=== PATIENT | female | born 1985 | race African-American/Black ===

== ENCOUNTER 2021-07-30 01:59 | Inpatient (IN) | payer MEDICAID, OTHER ==
[~2021-07-30] VITALS: Ht 165.1 cm; Wt 112.5 kg
[2021-07-30] MEDS ORDERED: CARBOPROST TROMETHAMINE 250 MCG/ML AMPUL IM PRN (04:30)
[2021-07-30] MEDS ORDERED: LIDOCAINE HCL 1% 20ML VIAL (Pyxis) INJ INFIL SCH (04:30)
[2021-07-30] MEDS ORDERED: METHYLERGONOVINE MALEATE 0.2 MG/ML IM PRN (04:30)
[2021-07-30] MEDS ORDERED: NALOXONE HCL 0.4 MG/ML 1ML VIAL IM PRN (04:30)
[2021-07-30] MEDS ORDERED: DEXT 5%/LR + PITOCIN 20UNITS/L 1,000 ML IV SCH (04:30)
[2021-07-30] MEDS ORDERED: PENICILLIN G POTASSIUM 5 MMU in DEXT 5% WATER 100 ML IV SCH (05:00)
[2021-07-30] MEDS: LACTATED RINGERS 1,000 ML IV SCH ×3 (06:42→18:22)
[2021-07-30] MEDS ORDERED: FERR236T3 MT (06:54)
[2021-07-30] MEDS ORDERED: PNV1TABL76 MT (06:54)
[2021-07-30] MEDS ORDERED: MISOPROSTOL 100MCG TABLET VG SCH (08:00)
[2021-07-30] MEDS ORDERED: PENICILLIN G POTASSIUM 2.5 MMU in DEXTROSE 5% WATER 50 ML IV SCH (09:00)
[2021-07-30 09:10] LABS: BASOPHILS % 0.6 % (0.0-2.0); EOSINOPHILS % 0.5 % (0.0-5.0); HEMATOCRIT. 31.7 % (36.0-48.0); HEMOGLOBIN. 10.5 g/dL (12.0-16.0); LYMPHOCYTES % 18.1 % (20.0-50.0); MEAN CORPUSCULAR HEMOGLOBIN 31.2 pg (28.0-32.0); MEAN CORPUSCULAR VOLUME 94.3 fL (81.0-99.0); MEAN PLATELET VOLUME 9.2 fl (7.4-10.4); MONOCYTES % 9.9 % (2.0-8.0); NEUTROPHILS % 70.9 % (40.0-76.0); PLATELET 202 x1000/uL (130-400); RED BLOOD CELL COUNT 3.36 mill/uL (4.2-5.4); RED CELL DISTRIBUTION WIDTH 14.5 % (11.6-14.6)
[2021-07-30 09:18] LABS: PARTIAL THROMBOPLASTIN TIME 28.1 sec (23.4-31.0); PROTHROMBIN TIME 10.8 sec (9.6-11.0)
[2021-07-30 09:40] LABS: CLARITY URINE CLOUDY (CLEAR); COLOR URINE YELLOW (YELLOW); KETONES URINE NEGATIVE (NEGATIVE); LEUKOCYTE ESTERASE URINE TRACE (NEGATIVE); NITRITE URINE NEGATIVE (NEGATIVE); OCCULT BLOOD URINE NEGATIVE (NEGATIVE); PROTEIN URINE NEGATIVE (NEGATIVE); UROBILINOGEN URINE 0.2 E.U./dL (0.2-1.0)
[2021-07-30 09:54] LABS: *AMPHETAMINES SCREEN URINE NEGATIVE (NEGATIVE)
[2021-07-30 09:55] LABS: *BENZODIAZEPINES SCREEN URINE NEGATIVE (NEGATIVE); *COCAINE SCREEN URINE NEGATIVE (NEGATIVE); METHADONE URINE SCREEN NEGATIVE (NEGATIVE); OPIATES URINE SCREEN NEGATIVE (NEGATIVE)
[2021-07-30 09:56] LABS: PHENCYCLIDINE URINE SCREEN NEGATIVE (NEGATIVE)
[2021-07-30 09:57] LABS: *BARBITURATES SCREEN URINE NEGATIVE (NEGATIVE)
[2021-07-30 10:24] LABS: CANNABINOID URINE SCREEN PRESUMTIVE POSITIVE (NEGATIVE)
[2021-07-30] MEDS: BUTORPHANOL TARTRATE 2 MG/ML VIAL IV PRN ×2 (12:06→16:48)
[2021-07-30 13:07] LABS: HEPATITIS B SURFACE ANTIGEN NEGATIVE
[2021-07-30] MEDS ORDERED: ROPIVACAINE HCL/PF EPIDURAL 200 ML EPI ONE (17:43)
[2021-07-30] MEDS ORDERED: FENTANYL CITRATE/PF 50MCG/ML 2ML VIAL ONE (17:43)
[2021-07-30] MEDS ORDERED: ROPIVACAINE HCL/PF EPIDURAL 200 ML EPI SCH (20:45)
[2021-07-31] MEDS ORDERED: DEXT 5%/LR + PITOCIN 20UNITS/L 1,000 ML IV SCH (01:45)
[2021-07-31] MEDS ORDERED: IBUPROFEN 400MG TABLET PO PRN (01:45)
[2021-07-31] MEDS ORDERED: RHO(D) IMMUNE GLOBULIN 300 MCG/SYR IM PRN (01:45)
[2021-07-31] MEDS ORDERED: BENZOCAINE/LANOLIN/ALOE VERA SPRAY TOP PRN (01:45)
[2021-07-31] MEDS: IBUPROFEN 800MG TABLET PO PRN ×4 (01:59→20:31)
[2021-07-31 04:00] VITALS: BP 106/56
[2021-07-31 08:43] LABS: HEMATOCRIT. 31.5 % (36.0-48.0); HEMOGLOBIN. 10.2 g/dL (12.0-16.0); MEAN CORPUSCULAR HEMOGLOBIN 30.6 pg (28.0-32.0); MEAN CORPUSCULAR VOLUME 94.5 fL (81.0-99.0); MEAN PLATELET VOLUME 9.7 fl (7.4-10.4); PLATELET 188 x1000/uL (130-400); RED BLOOD CELL COUNT 3.33 mill/uL (4.2-5.4); RED CELL DISTRIBUTION WIDTH 14.5 % (11.6-14.6)
[2021-07-31 08:50] VITALS: BP 99/51
[2021-07-31] MEDS: PRENATAL VIT/FE FUMARATE/FA TABLET PO SCH (09:09)
[2021-07-31 16:00] VITALS: BP 107/46
[2021-07-31 16:43] LABS: PLATELET ESTIMATE NORMAL
[2021-07-31 21:09] VITALS: BP 111/63
[2021-08-01] MEDS: IBUPROFEN 800MG TABLET PO PRN (02:26)
[2021-08-01 05:09] VITALS: BP 97/52
[2021-08-01 05:38] LABS: BASOPHILS % 0.8 % (0.0-2.0); EOSINOPHILS % 0.8 % (0.0-5.0); HEMATOCRIT. 27.1 % (36.0-48.0); HEMOGLOBIN. 8.8 g/dL (12.0-16.0); LYMPHOCYTES % 13.5 % (20.0-50.0); MEAN CORPUSCULAR HEMOGLOBIN 30.7 pg (28.0-32.0); MEAN CORPUSCULAR VOLUME 94.5 fL (81.0-99.0); MEAN PLATELET VOLUME 9.4 fl (7.4-10.4); MONOCYTES % 9.2 % (2.0-8.0); NEUTROPHILS % 75.7 % (40.0-76.0); PLATELET 168 x1000/uL (130-400); RED BLOOD CELL COUNT 2.87 mill/uL (4.2-5.4); RED CELL DISTRIBUTION WIDTH 14.7 % (11.6-14.6)
[2021-08-01] MEDS ORDERED: HYDROCODONE/ACETAMINOPHEN 5/325MG TABLET PO PRN (06:15)
[2021-08-01] MEDS ORDERED: KETOROLAC 60MG/2ML VIAL IM SCH (07:00)
[2021-08-01] MEDS ORDERED: KETOROLAC 30MG/ML VIAL IV SCH (07:00)
[2021-08-01 07:31] VITALS: BP 96/51
[2021-08-01] MEDS: PRENATAL VIT/FE FUMARATE/FA TABLET PO SCH (09:53)
[2021-08-01] MEDS: FERROUS SULFATE 325MG TABLET PO SCH ×3 (09:53→17:30)
[2021-08-01] MEDS: IBUPROFEN 800MG TABLET PO SCH ×2 (13:03→20:56)
[2021-08-01 16:08] VITALS: BP 102/49
[2021-08-01 20:00] VITALS: BP 112/66
[2021-08-02 04:00] VITALS: BP 114/51
[2021-08-02 08:00] VITALS: BP 95/52
[2021-08-02] MEDS: PRENATAL VIT/FE FUMARATE/FA TABLET PO SCH (09:08)
[2021-08-02] MEDS: IBUPROFEN 800MG TABLET PO SCH (09:09)
[2021-08-02] MEDS: FERROUS SULFATE 325MG TABLET PO SCH (09:09)
[2021-08-11 06:11] LABS: CANNABINOID CONFIRMATION URINE Positive (.)
== END 2021-08-02 13:15 | disposition home or self-care (01) | DRG 560 ==
LOC: 8 EST LDRP 01:59 → 8EST 07-31 05:36
PROVIDERS: ADMIT Obstetrics & Gynecology Obstetrics; ATTEND Obstetrics & Gynecology
PROC: 10E0XZZ Delivery of Products of Conception, External Approach (ICD-10-PCS; principal; 2021-07-31)
PROC: 0W8NXZZ Division of Female Perineum, External Approach (ICD-10-PCS; 2021-07-31)
PROC: 3E0R3BZ Introduction of Anesthetic Agent into Spinal Canal, Percutaneous Approach (ICD-10-PCS; 2021-07-31)
PROC: 00HU33Z Insertion of Infusion Device into Spinal Canal, Percutaneous Approach (ICD-10-PCS; 2021-07-31)
DX: O36.63X0 Maternal care for excessive fetal growth, third trimester, not applicable or unspecified (principal); Z37.0 Single live birth; O99.324 Drug use complicating childbirth; O99.03 Anemia complicating the puerperium; Z20.822 Contact with and (suspected) exposure to COVID-19; O77.0 Labor and delivery complicated by meconium in amniotic fluid; O99.214 Obesity complicating childbirth; F12.10 Cannabis abuse, uncomplicated; Z3A.40 40 weeks gestation of pregnancy
CPT/HCPCS: 36415; 76805; 76818; 80305; 80349; 81003; 85025; 86592; 86703; 86762; 86850; 86900; 87340; 87426; 99281; J0595; J1885; J2540; J2590; J2795; J3010; J3490; J7060; J7120

== ENCOUNTER 2023-06-23 21:43 | Observation (INO) | payer MEDICAID ==
[~2023-06-23] VITALS: Ht 165.1 cm; Wt 126.1 kg
[~2023-06-23 21:43] MED LIST: FERR236T3 MT; PNV1TABL76 MT
[2023-06-23 23:50] LABS: CLARITY URINE CLOUDY (CLEAR); COLOR URINE YELLOW (YELLOW); GLUCOSE URINE NEGATIVE (NEGATIVE); KETONES URINE TRACE (NEGATIVE); LEUKOCYTE ESTERASE URINE NEGATIVE (NEGATIVE); NITRITE URINE NEGATIVE (NEGATIVE); OCCULT BLOOD URINE NEGATIVE (NEGATIVE); PH URINE 5.5 (4.5-8.0); PROTEIN URINE NEGATIVE (NEGATIVE); SPECIFIC GRAVITY URINE 1.015 (1.005-1.030); UROBILINOGEN URINE 0.2 E.U./dL (0.2-1.0)
[2023-06-23 23:53] LABS: BACTERIA URINE 2+; RBC URINE NONE SEEN /hpf (0-2); YEAST URINE NONE SEEN
[2023-06-24 00:35] LABS: SQUAMOUS EPITHELIAL CELL URINE 1+ /lpf (RARE/1+)
[2023-06-24 00:38] LABS: WBC URINE 0-2 /hpf (0-2)
== END 2023-06-24 02:20 | disposition home or self-care (01) ==
LOC: 8 EST LDRP 21:43
PROVIDERS: ADMIT Obstetrics & Gynecology; ATTEND Obstetrics & Gynecology
DX: O62.9 Abnormality of forces of labor, unspecified (principal); Z3A.39 39 weeks gestation of pregnancy
CPT/HCPCS: 81003; 76815; 76818; G0378 ×2

== ENCOUNTER 2024-06-17 00:47 | Emergency (ER) | payer MEDICAID, OTHER ==
[~2024-06-17] VITALS: Ht 165.1 cm; Wt 109.3 kg
[~2024-06-17 00:47] MED LIST changes: -FERR236T3 MT
[2024-06-17 00:56] VITALS: O2SAT 100
[2024-06-17 03:02] VITALS: BP 108/64; PULSE 67; RESP 18; TEMP 98; O2SAT 99
[2024-06-17 03:28] LABS: CHLORIDE 110 mEq/L (98-107); POTASSIUM 3.8 mEq/L (3.5-5.1); SODIUM 140 mEq/L (136-145)
[2024-06-17 03:29] LABS: BASOPHILS % 0.8 % (0.0-2.0); CARBON DIOXIDE 26 mEq/L (21-32); DIFFERENTIAL COMMENT 0; EOSINOPHILS % 2.3 % (0.0-5.0); HEMATOCRIT. 40.9 % (36.0-48.0); HEMOGLOBIN. 13.1 g/dL (12.0-16.0); LYMPHOCYTES % 25.2 % (20.0-50.0); MEAN CORPUSCULAR HEMOGLOBIN 30.2 pg (28.0-32.0); MEAN CORPUSCULAR VOLUME 94.3 fL (81.0-99.0); MEAN PLATELET VOLUME 9.8 fl (7.4-10.4); MONOCYTES % 7.8 % (2.0-8.0); NEUTROPHILS % 63.9 % (40.0-76.0); PLATELET 174 x1000/uL (130-400); RED BLOOD CELL COUNT 4.34 mill/uL (4.2-5.4); RED CELL DISTRIBUTION WIDTH 13.4 % (11.6-14.6); WHITE BLOOD COUNT 8.7 x1000/uL (4.5-11.0)
[2024-06-17 03:30] LABS: CALCIUM 9.1 mg/dL (8.7-10.4)
[2024-06-17 03:34] LABS: CREATININE 0.9 mg/dL (0.6-1.0); GLUCOSE 105 mg/dL (70-105)
[2024-06-17 03:35] LABS: UREA NITROGEN BLOOD 8 mg/dL (9-23)
[2024-06-17 03:36] LABS: ALANINE AMINOTRANSFERASE < 7 IU/L (10-49); ALBUMIN 4.5 g/dL (3.2-4.8); ASPARTATE AMINOTRANSFERASE 10 IU/L (<34)
[2024-06-17 03:37] LABS: BILIRUBIN TOTAL 0.3 mg/dL (0.1-1.0); PROTEIN TOTAL 7.8 g/dL (6.0-8.3)
[2024-06-17 03:45] LABS: BILIRUBIN DIRECT < 0.1 mg/dL (<=3.0)
[2024-06-17 05:34] LABS: CLARITY URINE TURBID (CLEAR); COLOR URINE YELLOW (YELLOW); GLUCOSE URINE NEGATIVE (NEGATIVE); KETONES URINE NEGATIVE (NEGATIVE); LEUKOCYTE ESTERASE URINE 2+ (NEGATIVE); NITRITE URINE NEGATIVE (NEGATIVE); OCCULT BLOOD URINE NEGATIVE (NEGATIVE); PH URINE 5.5 (4.5-8.0); PROTEIN URINE TRACE (NEGATIVE); SPECIFIC GRAVITY URINE 1.021 (1.005-1.030)
[2024-06-17 06:34] LABS: SQUAMOUS EPITHELIAL CELL URINE 1+ /lpf (RARE/1+)
[2024-06-17 06:36] LABS: RBC URINE 0-2 /hpf (0-2)
[2024-06-17 06:40] LABS: BACTERIA URINE 1+
== END 2024-06-17 08:19 | disposition left against medical advice (07) ==
LOC: ER 01:05
DX: N39.0 Urinary tract infection, site not specified (principal); R10.2 Pelvic and perineal pain
CPT/HCPCS: 36415; 76856; 80048; 80076; 81003; 81025; 85025; 99284